=== PATIENT | female | born 1955 | race African-American/Black ===

== ENCOUNTER 2018-05-15 20:11 | Emergency (ER) | payer MEDICAID, OTHER ==
[~2018-05-15] VITALS: Ht 162.6 cm; Wt 63.0 kg
[2018-05-15 20:43] VITALS: BP 147/79
== END 2018-05-16 00:42 | disposition home or self-care (01) ==
LOC: ER 20:16
DX: B35.3 Tinea pedis (principal); Z91.013 Allergy to seafood